=== PATIENT | male | born 1945 | race Caucasian/White ===

== ENCOUNTER → 2016-10-12 | Outpatient (CLI) | payer OTHER ==
--- NOTE | ~2016-10-12 | CT57 ---
[facility] A Service of [facility] RADIOLOGY TEXT RESULTS PATIENT: [facility]ONE [facility] #: [id number] AGE: [address]: Ritchie Soto MD SEX: M ORDER DR: [id number] [facility]. [place], [place] [address] [id number] O MR#: [id number] Acc #: [id number] NAME: NEERU STONE : 1945 SEX: M STUDY DATE/TIME: 10/12/2016 7:38 UNIT: CCAT ROOM: STUDY DESCRIPTION: CT Chest Wo Cont Attending Physician: Ritchie Soto M.D. Referring Physician: Ritchie Soto M.D. Ordering Physician: Ritchie Soto M.D. Primary Care Physician: Ritchie Soto M.D. MEDICAL IMAGING REPORT This report is preliminary unless electronic signature is present EXAM CT chest without contrast INDICATION Follow up pulmonary nodule. Shortness of air occasionally over the past [address] of the chest. This CT exam was performed with one or more of the following radiation dose reduction techniques: automatic exposure control, adjustment of mA and/or kV according to patient size, and iterative reconstruction. COMPARISON 07/11/2016 FINDINGS 9 mm subpleural nodule posterior right upper lobe is unchanged. There is no dense consolidation or new suspicious pulmonary nodule. Diffuse interstitial changes are stable. No adenopathy. No pericardial fluid. No acute findings included upper abdomen. No aggressive-appearing bone lesion. IMPRESSION 1. Stable 9 mm subpleural nodule posterior right upper lobe. It is been stable for 3 months. Recommend attention on a 6-month follow up chest CT. 2. Stable chronic interstitial changes. Dictated by... Haider Blanca M.D. [facility] A Service [facility] RADIOLOGY TEXT RESULTS PATIENT: NEERU STONE [facility] UNIT #: [id number] AGE: [address]: Ritchie Soto MD SEX: M ORDER DR: THIS IS AN ELECTRONICALLY VERIFIED REPORT Haider Blanca M.D. at 10/13/2016 7:06 AM DELMY/coco TD: 10/12/2016 11:12 JOB #: [id number] MEDICAL IMAGING REPORT Page 1 of 1 COPY
[2016-10-12 15:11] LABS: POC - CREATININE 1.03 mg/dL (0.64-1.27); POC - GFR >60.0 mL/min (>60)
== END | disposition home or self-care (01) ==
LOC: CCAT 06:50
PROVIDERS: Family Medicine
DX: J84.9 Interstitial pulmonary disease, unspecified (principal); R91.1 Solitary pulmonary nodule
CPT/HCPCS: 71250; 82565

== ENCOUNTER → 2016-12-22 | Outpatient (CLI) | payer OTHER ==
--- NOTE | ~2016-12-22 | US37 ---
[facility] A Service of [facility] RADIOLOGY TEXT RESULTS PATIENT: NEERU STONE LOCATION: [facility] : 45 UNIT #: [id number] AGE: [address]: Ritchie Soto MD SEX: M ORDER DR: [id number] [facility] [address] [place], [place] [address] [id number] O MR#: [id number] Acc #: [id number] NAME: NEERU STONE : 1945 SEX: M STUDY DATE/TIME: 12/22/2016 9:03 UNIT: [facility] ROOM: STUDY DESCRIPTION: US Carotid W/Doppler Bilateral Attending Physician: Ritchie Soto M.D. Referring Physician: Ritchie Soto M.D. Ordering Physician: Ritchie Soto M.D. Primary Care Physician: Ritchie Soto M.D. MEDICAL IMAGING REPORT This report is preliminary unless electronic signature is present EXAM Carotid duplex scan 12/22/2016 HISTORY Carotid stenosis. Previous stroke. FINDINGS The right common carotid artery has a small amount of heterogeneous plaque which extends up into the proximal internal and external carotid arteries. Peak systolic velocity in the proximal right internal carotid artery is 68 cm/sec with an end-diastolic velocity of 17 cm/sec. The ICA:CCA ratio on the right is 0.94. Peak systolic velocity in the right external carotid artery is 85 cm/sec. The right vertebral artery is patent with antegrade flow. The left common carotid artery has a small amount of heterogeneous dense plaque which extends up into the proximal internal and external carotid arteries. Peak systolic velocity in the proximal left internal carotid artery is 64 cm/sec with an end-diastolic velocity of 20 cm/sec. The ICA:CCA ratio on the left is 0.72. Peak systolic velocity in the left external carotid artery is 120 cm/sec. The left vertebral artery is patent with antegrade flow. IMPRESSION Small amount of plaque, but no significant stenosis (less than 50%) in the internal and external carotid arteries bilaterally. Patent vertebral arteries bilaterally with antegrade flow. [facility] A Service of [facility] RADIOLOGY TEXT RESULTS PATIENT: NEERU STONE LOCATION: [facility] : 45 UNIT #: [id number] AGE: [address]: Ritchie Soto MD SEX: M ORDER DR: Dictated by... Arnulfo More M.D. THIS IS AN ELECTRONICALLY VERIFIED REPORT Arnulfo More M.D. at 12/25/2016 8:15 AM CHULA/juliette TD: 12/22/2016 14:07 JOB #: [id number] MEDICAL IMAGING REPORT Page 1 of 1 COPY
== END | disposition home or self-care (01) ==
LOC: CNIV 12-15 09:00
DX: I65.23 Occlusion and stenosis of bilateral carotid arteries (principal)
CPT/HCPCS: 93880